=== PATIENT | female | born 1950 | race Caucasian/White ===

== ENCOUNTER → 2019-04-16 10:36 | Outpatient (CLI) | payer MEDICARE, SELFPAY | PROVIDERS: Family Provider Family Medicine; PCP Family Medicine; Referring Provider Family Medicine; Visit Provider Family Medicine | DX: I73.9 Peripheral vascular disease, unspecified (principal) | CPT/HCPCS: 93923 ==

== ENCOUNTER → 2020-11-05 07:41 | Outpatient (CLI) | payer MEDICARE, SELFPAY ==
--- NOTE | 2020-11-05 13:29 | NEURO ---
NCS and/or EMG Patient Report Ordering Doctor: Spenser Mendez DATE OF SERVICE: 11/05/20 Rhoda Rubin presents for electrodiagnostic testing of the upper limbs. She reports pain in both arms with intermittent numbness and tingling. Electrodiagnostic findings: Median motor nerve demonstrates normal distal latency, amplitude and conduction velocity bilaterally. Ulnar motor responses within normal limits bilaterally. Normal median ulnar F waves. Prolonged median sensory latency at the wrist is noted bilaterally. Normal ulnar and radial sensory responses. On needle EMG, all muscles tested in the upper limbs, as well as the cervical paraspinals, showed no evidence of denervation with normal motor unit action potentials. Electrodiagnostic impression: This is an abnormal study in the upper limbs 1. Electrodiagnostic findings suggestive of bilateral median mononeuropathy. This is consistent with a mild bilateral carpal tunnel syndrome. 2. No electrodiagnostic evidence is noted for cervical radiculopathy. If there are any further questions, please do not hesitate to contact me.
== END ==
PROVIDERS: PCP Family Medicine; Referring Provider Family Medicine; Visit Provider Family Medicine
DX: R20.2 Paresthesia of skin (principal); G57.11 Meralgia paresthetica, right lower limb
CPT/HCPCS: 95886; 95913

== ENCOUNTER → 2023-01-13 | Outpatient (CLI) | payer MEDICARE, SELFPAY ==
--- NOTE | 2023-01-13 14:57 | ART_ITS ---
Reason For Study: PVD Procedure A bilateral lower extremity continuous wave Doppler with analog waveform analysis,segmental pressures,and ankle brachial indexes with exercise. Left Segmental Pressures Left brachial= 160mmHg. Left posterior tibial artery = 177mmHg. Left dorsalis pedis artery = 169mmHg. Left digit = 0.54 mmHg. The left dorsalis pedis waveforms are triphasic. The left posterior tibial artery waveforms are triphasic. Right Segmental Pressures Right brachial= 162mmHg. Right posterior tibial artery = 168mmHg. Right dorsalis pedis artery = 172mmHg. Right digit = 94 mmHg. The right dorsalis pedis waveforms are triphasic. The right posterior tibial artery waveforms are triphasic. Indices The right ankle brachial index by the dorsalis pedis is 1.06. The right ankle brachial index by the posterior tibial artery is 1.04. The right digital-brachial index is 0.58. The right post exercise ankle brachial index is 0.84. The left ankle brachial index by the dorsalis pedis is 1.04. The left ankle brachial index by the posterior tibial artery is 1.09. The left digital-brachial index is 0.54. The left post exercise ankle brachial index is 1.01. VL/Lower Ext Art Exam w/o Exercis Interpretation Summary Right GERSON 1.06, normal. Doppler/PVR waveforms of the right leg normal at rest. TBI diminished, pedal/digit disease vs spasm. Right lower extremity with abnormal response to exercise and post exercise GERSON in the moderate category. Left GERSON 1.09, normal. Doppler/PVR waveforms of the left leg normal at rest. TB I diminished, pedal/digit disease vs spasm. Left lower extremity exhibits normal response to exercise. Ordering Physician: Jenny Frank Referring Physician: Spenser Mendez Performed By: Jeri Kim RVT
== END | disposition home or self-care (01) ==
LOC: CVS 14:50
PROVIDERS: PCP Family Medicine; Referring Provider Nurse Practitioner Primary Care; Visit Provider Nurse Practitioner Primary Care
DX: I77.9 Disorder of arteries and arterioles, unspecified (principal); I73.9 Peripheral vascular disease, unspecified
CPT/HCPCS: 93923

== ENCOUNTER → 2023-08-30 | Outpatient (CLI) | payer MEDICARE, SELFPAY ==
--- NOTE | 2023-08-30 09:53 | ECHOD_ITS ---
Reason For Study: Afib Procedure This was a 2D Doppler, Color Flow transthoracic echocardiogram. Technically difficult due to patients body habitus. Exam performed in department. Left Ventricle Normal LV size. Left ventricular systolic function is normal. The estimated ejection fraction is 55 %. No regional wall motion abnormalities noted. Right Ventricle Normal RV size. Normal systolic function. Atria Normal left atrium. Normal right atrium. Mitral Valve Normal mitral valve. Tricuspid Valve Normal tricuspid valve. Mild tricuspid valve insufficiency. Pulmonary artery systolic pressure is 32 mmHg. Aortic Valve Trisinus/trileaflet aortic valve. Pulmonic Valve Normal pulmonic valve. Great Vessels Normal aortic root. The pulmonary artery is normal size. Normal inferior vena cava. Pericardium/Pleural No pericardial effusion. MMode/2D Measurements & Calculations LVIDd: 3.9 cm IVSd: 0.72 cm LA dimension: 2.9 cm LVIDs: 2.5 cm LVPWd: 0.67 cm FS: 36.2 % LAV(MOD-sp2): 26.9 ml Time Measurements MV dec time: 0.16 sec Doppler Measurements & Calculations MV E max james: 53.2 cm/sec Lat Peak E' James: 6.0 cm/sec Med Peak E' James: 7.4 cm/sec MV A max james: 58.6 cm/sec E/E' lat: 8.8 E/E' med: 7.2 MV E/A: 0.91 MV V2 max: 92.5 cm/sec MV P1/2t max james: 78.4 cm/sec Ao V2 max: 77.0 cm/sec MV max P.4 mmHg MV P1/2t: 60.1 msec Ao max P.4 mmHg MV V2 mean: 44.1 cm/sec Ao V2 mean: 53.7 cm/sec MV mean P.97 mmHg MV dec slope: 382.3 cm/sec2 Ao mean P.3 mmHg MV V2 VTI: 22.5 cm MVA(P1/2t): 3.7 cm2 Ao V2 VTI: 16.8 cm AV (velocity ratio): 0.83 LV V1 max: 65.8 cm/sec PA V2 max: 93.0 cm/sec TR max james: 263.3 cm/sec LV V1 max P.7 mmHg PA V2 mean: 60.7 cm/sec TR max P.7 mmHg LV V1 mean P.77 mmHg LV V1 mean: 39.9 cm/sec LV V1 VTI: 13.8 cm ECHO/Echo Complete Interpretation Summary Normal LV size. Left ventricular systolic function is normal. The estimated ejection fraction is 55 %. No regional wall motion abnormalities noted. Pulmonary artery systolic pressure is 32 mmHg. Ordering Physician: Diana Martinez Referring Physician: Diana Martinez Performed By: Santana Erickson RCS
--- NOTE | 2023-08-30 09:53 | CDU_ITS ---
Reason For Study: Carotid stenosis Rt. Velocities/BP Lt. Velocities/BP Prox CCA 91.9/19.2 cm/sec. Prox CCA 70.7/14.6 cm/sec. Mid CCA 64.5/13.5 cm/sec. Mid CCA 69.6/19 cm/sec. Dist CCA 57.9/16.3 cm/sec. Dist CCA 69.6/20.1 cm/sec. Prox ICA 56.9/16.3 cm/sec. Prox ICA 63/16.8 cm/sec. Mid ICA 98.6/32.3 cm/sec. Mid ICA 70.7/22.3 cm/sec. Dist ICA 75.3/20 cm/sec. Dist ICA 86.1/28.9 cm/sec. Rt. ICA/CCA = 1.53. Lt. ICA/CCA = 1.24. Prox ECA 108.4/10.2 cm/sec. Prox ECA 55.3/6.9 cm/sec. Rt. Vert. 64.1/16.8 cm/sec. Lt. Vert. 79.5/15.7 cm/sec. Right Extracranial There is intimal thickening but no significant atherosclerotic plaque noted in the right common carotid artery. There is heterogeneous, irregular atherosclerotic plaque noted in the right internal carotid artery. There is homogeneous, smooth atherosclerotic plaque noted in the right external carotid artery. Antegrade flow is noted in the right vertebral artery. Left Extracranial There is intimal thickening but no significant atherosclerotic plaque noted in the left common carotid artery. There is heterogeneous, irregular atherosclerotic plaque noted in the left internal carotid artery. There is intimal thickening but no significant atherosclerotic plaque noted in the left external carotid artery. Antegrade flow is noted in the left vertebral artery. There is heterogeneous, irregular atherosclerotic plaque noted in the left bulb. Procedure Carotid Duplex 75282. This is a Carotid Duplex examination using B-mode, color flow and specral Doppler. Exam performed in department. VL/Carotid Duplex Ultrasound Interpretation Summary Mild (<50%) stenosis right extracranial internal carotid. Mild (<50%) stenosis left extracranial internal carotid. Patent and antegrade vertebrals bilaterally. Ordering Physician: Diana Martinez Referring Physician: Spenser Mendez Performed By: Jeri Kim RVT
== END | disposition home or self-care (01) ==
LOC: PSN 09:51
PROVIDERS: PCP Family Medicine
DX: R00.2 Palpitations (principal); I48.0 Paroxysmal atrial fibrillation; I65.23 Occlusion and stenosis of bilateral carotid arteries
CPT/HCPCS: 93225; 93226; 93306; 93880